=== PATIENT | female | born 1950 | race African-American/Black ===

== ENCOUNTER 2018-11-08 21:27 | Inpatient (IN) ==
[~2018-11-08 21:27] MED LIST: cefOXitin 2,000 MG in SYRINGE 1 EACH IV SCH
[2018-11-08 21:49] LABS: Basophils % 0.3 % (0.0-0.8); Eosinophils # 0.3 10*3/uL (0.0-0.87); Eosinophils % 2.3 % (0.00-10.9); Hematocrit 39.5 VOL% (35.7-47.0); Hemoglobin 11.8 GM/DL (12.0-16.0); Immature Granulocytes % 1.9 %; Immature Granulocytes Absolute 0.21 #; Lymphocytes # 2.4 10*3/uL (1.4-4.0); Lymphocytes % 22.2 % (21.3-54.2); Mean Corpuscular HGB Conc 29.9 GM/DL (32-36); Mean Corpuscular Volume 87.4 FL (87-102); Mean Platelet Volume 10.8 FL (9.6-12.0); Monocytes % 6.2 % (1.7-12.7); Neutrophils % 67.1 % (38.7-73.9); Platelet Count 186 T/CUMM (130-400); Red Blood Count 4.52 MC/CUMM (3.8-5.5); Red Cell Distribution Width 13.7 % (9.3-17.3); White Blood Count 10.9 T/CUMM (4-12)
[2018-11-08 22:11] LABS: Alanine Aminotransferase 34 U/L (13-56); Albumin 3.6 G/DL (3.4-5.0); Alkaline Phosphatase 121 U/L (45-117); Aspartate Amino Transferase 51 U/L (0-37); Bilirubin,Total < 0.39 MG/DL (0.2-1.0); Blood Urea Nitrogen 17 MG/DL (7-18); Calcium 9.4 MG/DL (8.5-10.1); Glucose 146 MG/DL (74-106); Osmolality,Calculated 281.5 MOS/KG (273-304); Total Protein 7.5 G/DL (6.4-8.3)
[2018-11-08] MEDS ORDERED: LIDOCAINE 2% 20 ML VIAL MISC INJ ONE (22:27)
[2018-11-08] MEDS ORDERED: DIPHTHERIA/TETANUS ADULT VACCINE 0.5 ML SYRINGE IM ONE (22:27)
[2018-11-08] MEDS ORDERED: MORPHINE 4 MG/1 ML VIAL ONE (23:39)
[2018-11-08] MEDS ORDERED: ONDANSETRON 4 MG/2 ML VIAL ONE (23:39)
[2018-11-08] MEDS ORDERED: MORPHINE 4 MG/1 ML VIAL IV STA (23:47)
[2018-11-08] MEDS ORDERED: ONDANSETRON 4 MG/2 ML VIAL IV ONE (23:47)
[2018-11-08] MEDS ORDERED: ONDANSETRON 4 MG/2 ML VIAL IV PRN (23:49)
[2018-11-08] MEDS ORDERED: MORPHINE 4 MG/1 ML VIAL IV PRN (23:49)
[2018-11-08] MEDS ORDERED: ACETAMINOPHEN 325 MG TABLET PO PRN (23:49)
[2018-11-09 00:04] LABS: PT Patient Result 10.4 SECS
[2018-11-09] MEDS: DEXTROSE 5% NACL 0.45% 1,000 ML IV SCH (02:21)
[2018-11-09] MEDS: cefOXitin 2,000 MG in SYRINGE 1 EACH IV SCH ×4 (04:49→21:28)
[2018-11-09 05:15] LABS: Basophils % 0.2 % (0.0-0.8); Hematocrit 34.7 VOL% (35.7-47.0); Hemoglobin 10.6 GM/DL (12.0-16.0); Immature Granulocytes % 0.6 %; Immature Granulocytes Absolute 0.07 #; Lymphocytes # 0.6 10*3/uL (1.4-4.0); Lymphocytes % 4.8 % (21.3-54.2); Mean Corpuscular HGB Conc 30.5 GM/DL (32-36); Mean Corpuscular Volume 86.3 FL (87-102); Mean Platelet Volume 11.5 FL (9.6-12.0); Monocytes % 7.7 % (1.7-12.7); Neutrophils % 86.7 % (38.7-73.9); Platelet Count 164 T/CUMM (130-400); Red Blood Count 4.02 MC/CUMM (3.8-5.5); Red Cell Distribution Width 13.6 % (9.3-17.3); White Blood Count 12.6 T/CUMM (4-12)
[2018-11-09 05:43] LABS: Osmolality,Calculated 279.7 MOS/KG (273-304)
[2018-11-09 05:57] LABS: Anisocytosis 1+; Band Neutrophils 4 % (0-10); Eosinophils 1 % (0-10); Hypochromasia Slight; Lymphocytes 6 % (20-55); Macrocytosis 1+; Platelet Estimate Normal; Segmented Neutrophils 82 % (50-85); Total Cells Counted 100
[2018-11-09] MEDS ORDERED: MORPHINE 4 MG/1 ML VIAL IV PRN ×2 (06:31)
[2018-11-09] MEDS ORDERED: GENTAMICIN IV ONE (07:00)
[2018-11-09] MEDS ORDERED: SODIUM CHLORIDE 0.9% IV ONE (07:00)
[2018-11-09] MEDS ORDERED: PANTOPRAZOLE 40 MG VIAL IV SCH (09:00)
[2018-11-09] MEDS: FAMOTIDINE 20 MG/2 ML VIAL IV SCH ×2 (09:04→21:28)
[2018-11-09] MEDS ORDERED: diphenhydrAMINE CAP 25 MG CAPSULE PO PRN (10:10)
[2018-11-09] MEDS ORDERED: ZALEPLON 5 MG CAPSULE PO PRN (10:10)
[2018-11-09] MEDS ORDERED: GENTAMICIN 80 MG/2 ML VIAL ONE (11:56)
[2018-11-09] MEDS ORDERED: BACITRACIN OINT 0.9 GM PACK TOP ONE (11:56)
[2018-11-09] MEDS ORDERED: ROPIVACAINE 0.5% 30 ML VIAL ONE (12:07)
[2018-11-09] MEDS ORDERED: GLUCAGON 1 MG VIAL IM PRN (12:59)
[2018-11-09] MEDS ORDERED: DEXTROSE 50% 25 GM/50 ML VIAL IV PRN (12:59)
[2018-11-09] MEDS: POTASSIUM CHLORIDE INJ 20 MEQ in LACTATED RINGERS 1,000 ML IV SCH ×2 (13:04→21:40)
[2018-11-09] MEDS ORDERED: hydrALAZINE 20 MG/1 ML VIAL ONE ×2 (13:17→13:31)
[2018-11-09] MEDS ORDERED: PROPOFOL 200 MG/20 ML VIAL IV ONE (13:17)
[2018-11-09] MEDS ORDERED: SEVOFLURANE 1 UNIT/15 MINUTE INH ONE (13:17)
[2018-11-09] MEDS ORDERED: DEXAMETHASONE 4 MG/1 ML VIAL ONE (13:17)
[2018-11-09] MEDS ORDERED: fentaNYL 100 MCG/2 ML VIAL ONE (13:17)
[2018-11-09] MEDS ORDERED: ONDANSETRON 4 MG/2 ML VIAL ONE (13:17)
[2018-11-09] MEDS ORDERED: MIDAZOLAM 2 MG/2 ML VIAL ONE (13:17)
[2018-11-09] MEDS ORDERED: GLYCOPYRROLATE 0.4 MG/2 ML VIAL ONE (13:18)
[2018-11-09] MEDS ORDERED: ROCURONIUM 100 MG/10 ML VIAL IV ONE (13:18)
[2018-11-09] MEDS ORDERED: SUCCINYLCHOLINE 200 MG/10 ML VIAL ONE (13:18)
[2018-11-09] MEDS ORDERED: NEOSTIGMINE 10 MG/10 ML VIAL ONE (13:18)
[2018-11-09] MEDS ORDERED: SODIUM CHLORIDE 0.9% 1,000 ML IV ONE (13:18)
[2018-11-09] MEDS ORDERED: hydrALAZINE 20 MG/1 ML VIAL IV ONE (13:33)
[2018-11-09] MEDS: INSULIN LISPRO 100 UNIT/ML SUBCUT SCH ×2 (17:07→21:43)
[2018-11-09] MEDS: DOCUSATE SODIUM 100 MG CAPSULE PO SCH (21:26)
[2018-11-10] MEDS: cefOXitin 2,000 MG in SYRINGE 1 EACH IV SCH (04:49)
[2018-11-10] MEDS: FONDAPARINUX 2.5 MG/0.5 ML SYRINGE SUBCUT SCH (04:49)
[2018-11-10 05:46] LABS: Calcium 8.1 MG/DL (8.5-10.1); Osmolality,Calculated 284.1 MOS/KG (273-304)
[2018-11-10] MEDS: LEVOTHYROXINE 88 MCG TABLET PO SCH (06:26)
[2018-11-10 06:27] LABS: Basophils % 0.1 % (0.0-0.8); Hematocrit 30.6 VOL% (35.7-47.0); Hemoglobin 9.3 GM/DL (12.0-16.0); Immature Granulocytes % 0.7 %; Immature Granulocytes Absolute 0.08 #; Lymphocytes # 0.9 10*3/uL (1.4-4.0); Lymphocytes % 7.6 % (21.3-54.2); Mean Corpuscular HGB Conc 30.4 GM/DL (32-36); Mean Corpuscular Volume 86.2 FL (87-102); Mean Platelet Volume 11.6 FL (9.6-12.0); Monocytes % 11.2 % (1.7-12.7); Neutrophils % 80.4 % (38.7-73.9); Platelet Count 166 T/CUMM (130-400); Red Blood Count 3.55 MC/CUMM (3.8-5.5); Red Cell Distribution Width 13.9 % (9.3-17.3); White Blood Count 11.7 T/CUMM (4-12)
[2018-11-10] MEDS: INSULIN LISPRO 100 UNIT/ML SUBCUT SCH ×4 (08:44→21:13)
[2018-11-10] MEDS: FAMOTIDINE 20 MG/2 ML VIAL IV SCH ×2 (08:48→21:55)
[2018-11-10] MEDS: FLUTICASONE 50 MCG NASAL SPRAY 16 GM BOTTLE BOTH NARES SCH (08:49)
[2018-11-10] MEDS: amLODIPine 5 MG TABLET PO SCH (08:50)
[2018-11-10] MEDS: DOCUSATE SODIUM 100 MG CAPSULE PO SCH ×2 (08:50→20:51)
[2018-11-11] MEDS: FONDAPARINUX 2.5 MG/0.5 ML SYRINGE SUBCUT SCH (04:34)
[2018-11-11 04:54] LABS: Basophils % 0.3 % (0.0-0.8); Eosinophils % 0.4 % (0.00-10.9); Hemoglobin 8.6 GM/DL (12.0-16.0); Immature Granulocytes % 0.8 %; Immature Granulocytes Absolute 0.08 #; Lymphocytes # 1.9 10*3/uL (1.4-4.0); Lymphocytes % 18.2 % (21.3-54.2); Mean Corpuscular HGB Conc 30.7 GM/DL (32-36); Mean Corpuscular Volume 85.9 FL (87-102); Mean Platelet Volume 11.5 FL (9.6-12.0); Neutrophils % 68.3 % (38.7-73.9); Platelet Count 166 T/CUMM (130-400); Red Blood Count 3.26 MC/CUMM (3.8-5.5); Red Cell Distribution Width 13.9 % (9.3-17.3); White Blood Count 10.3 T/CUMM (4-12)
[2018-11-11] MEDS: LEVOTHYROXINE 88 MCG TABLET PO SCH (06:02)
[2018-11-11] MEDS: FLUTICASONE 50 MCG NASAL SPRAY 16 GM BOTTLE BOTH NARES SCH (09:34)
[2018-11-11] MEDS: FAMOTIDINE 20 MG/2 ML VIAL IV SCH ×2 (09:34→21:12)
[2018-11-11] MEDS: MAGNESIUM HYDROXIDE SUSP 30 ML UDCUP PO PRN (09:35)
[2018-11-11] MEDS: DOCUSATE SODIUM 100 MG CAPSULE PO SCH ×2 (09:35→21:02)
[2018-11-11] MEDS: amLODIPine 5 MG TABLET PO SCH (09:35)
[2018-11-11] MEDS: INSULIN LISPRO 100 UNIT/ML SUBCUT SCH ×4 (09:35→21:03)
[2018-11-11] MEDS: DEXTROSE 5% NACL 0.45% 1,000 ML IV SCH (10:12)
[2018-11-11] MEDS ORDERED: DEXTROSE 50% 25 GM/50 ML VIAL IV PRN (12:14)
[2018-11-11 20:20] LABS: Apearance,Urine CLOUDY (Clear); Bacteria,Urine Occasional /HPF (Few); Bilirubin,Urine Negative (Negative); Blood, Urine Moderate mg/dL (Negative); Glucose,Urine (UA) Negative (Negative); Hyaline Casts,Urine 1 /LPF (0-3); Ketones,Urine Negative (Negative); Mucus,Urine Occasional /LPF (Occasional); Nitrite,Urine Negative (Negative); Protein,Urine Negative; Squamous Epithelial Cell,Urine Few /HPF (0-10); Urine Color Yellow (Yellow); Urine Specific Gravity 1.013 (1.001-1.035); Urine Urobilinogen < 2.0 EU/DL (0.2-1.0); WBC,Urine 1 /HPF (0-6)
[2018-11-12] MEDS: FONDAPARINUX 2.5 MG/0.5 ML SYRINGE SUBCUT SCH (05:08)
[2018-11-12 05:09] LABS: Basophils % 0.4 % (0.0-0.8); Eosinophils # 0.2 10*3/uL (0.0-0.87); Eosinophils % 2.4 % (0.00-10.9); Hematocrit 27.9 VOL% (35.7-47.0); Hemoglobin 8.4 GM/DL (12.0-16.0); Immature Granulocytes % 1.2 %; Immature Granulocytes Absolute 0.11 #; Lymphocytes # 1.7 10*3/uL (1.4-4.0); Lymphocytes % 18.9 % (21.3-54.2); Mean Corpuscular HGB Conc 30.1 GM/DL (32-36); Mean Corpuscular Volume 86.4 FL (87-102); Mean Platelet Volume 10.9 FL (9.6-12.0); Monocytes % 11.8 % (1.7-12.7); Neutrophils % 65.3 % (38.7-73.9); Platelet Count 173 T/CUMM (130-400); Red Blood Count 3.23 MC/CUMM (3.8-5.5); Red Cell Distribution Width 13.8 % (9.3-17.3)
[2018-11-12] MEDS: LEVOTHYROXINE 88 MCG TABLET PO SCH (06:25)
[2018-11-12] MEDS: INSULIN LISPRO 100 UNIT/ML SUBCUT SCH ×4 (07:51→21:53)
[2018-11-12] MEDS: FAMOTIDINE 20 MG/2 ML VIAL IV SCH ×2 (08:51→21:55)
[2018-11-12] MEDS: amLODIPine 5 MG TABLET PO SCH (08:51)
[2018-11-12] MEDS: DOCUSATE SODIUM 100 MG CAPSULE PO SCH ×2 (08:51→21:54)
[2018-11-12] MEDS: MAGNESIUM HYDROXIDE SUSP 30 ML UDCUP PO PRN (08:51)
[2018-11-12] MEDS: FLUTICASONE 50 MCG NASAL SPRAY 16 GM BOTTLE BOTH NARES SCH (08:52)
[2018-11-13] MEDS: MAGNESIUM HYDROXIDE SUSP 30 ML UDCUP PO PRN (00:26)
[2018-11-13] MEDS: FONDAPARINUX 2.5 MG/0.5 ML SYRINGE SUBCUT SCH (05:04)
[2018-11-13] MEDS: LEVOTHYROXINE 88 MCG TABLET PO SCH (05:59)
[2018-11-13] MEDS: INSULIN LISPRO 100 UNIT/ML SUBCUT SCH ×2 (07:30→11:30)
[2018-11-13] MEDS: FAMOTIDINE 20 MG/2 ML VIAL IV SCH (08:51)
[2018-11-13] MEDS: amLODIPine 5 MG TABLET PO SCH (08:52)
[2018-11-13] MEDS: DOCUSATE SODIUM 100 MG CAPSULE PO SCH (08:52)
[2018-11-13] MEDS: FLUTICASONE 50 MCG NASAL SPRAY 16 GM BOTTLE BOTH NARES SCH (08:52)
[2018-11-13 12:25] VITALS: BP 134/77
== END 2018-11-13 13:54 | disposition home health service (06) | DRG 482 ==
LOC: EDBD → EDUNIT# → N.ED 21:27 → N.EDINP 23:48 → N.3E 11-09 00:46
PROVIDERS: ADMIT Orthopaedic Surgery; ATTEND Surgery